=== PATIENT | male | born 1945 | race Caucasian/White ===

== ENCOUNTER 2022-10-02 07:20 | Day surgery (SDC) | payer OTHER ==
[2022-09-26 12:25] VITALS: BMI 26.2
[2022-10-02] MEDS ORDERED: PROPOFOL 20 ML ONE (08:23)
[2022-10-02] MEDS ORDERED: MIDAZOLAM HCL 2 MG/2 ML SINGLE DOSE VIAL ONE (08:23)
[2022-10-02] MEDS ORDERED: ACETAMINOPHEN 325 MG TABLET (FP) PO PRN (09:45)
[2022-10-02 10:04] VITALS: RESP 16; TEMP 98.1
[2022-10-02 10:10] VITALS: BP 140/70; PULSE 70
== END 2022-10-02 10:22 | disposition home or self-care (01) ==
LOC: FASU 07:20
PROVIDERS: ATTEND Orthopaedic Surgery Hand Surgery
PROC: 01N50ZZ Release Median Nerve, Open Approach (ICD-10-PCS; principal; 2022-10-02 09:19)
DX: G56.01 Carpal tunnel syndrome, right upper limb (principal)